=== PATIENT | female | born 2000 | race Caucasian/White ===

== ENCOUNTER 2021-02-18 09:52 | Inpatient (IN) ==
[2021-02-18] MEDS ORDERED: *HR* Nalbuphine 10 MG/ML AMPUL IV PRN (10:03)
[2021-02-18] MEDS ORDERED: Azithromycin 500 MG in 0.9 % Sodium Chloride 250 ML IVPB PRN (10:03)
[2021-02-18] MEDS ORDERED: Metoclopramide 10 MG/2 ML VIAL IVP PRN (10:03)
[2021-02-18] MEDS ORDERED: Famotidine 20 MG/2 ML VIAL IVP PRN (10:03)
[2021-02-18] MEDS ORDERED: Lidocaine 1% 20 ML MDV INFILT PRN (10:03)
[2021-02-18] MEDS ORDERED: Naloxone 0.4 MG/ML INJ IVP PRN (10:03)
[2021-02-18] MEDS ORDERED: EPHEDrine 50 MG/ML VIAL IVP PRN (10:47)
[2021-02-18] MEDS ORDERED: Epidural Premix (fent/bupiv) 110 ML EP SCH (11:00)
[2021-02-18 11:21] LABS: Basophils # 0.1 K/mcL (0.0-0.2); Basophils % 0.4 %; Eosinophils # 0.1 K/mcL (0.0-0.6); Eosinophils % 0.4 %; Hematocrit 29.3 % (35.3-44.9); Immature Granulocytes % 1.6 % (0-4); Lymphocytes # 2.4 K/mcL (0.6-4.6); Lymphocytes % 19.5 %; Mean Corpuscular HGB Conc 30.7 g/dL (31.6-35.5); Mean Corpuscular Hemoglobin 23.6 pg (28.0-33.3); Mean Corpuscular Volume 76.9 fL (83.0-100.0); Mean Platelet Volume 11.6 fL (9.4-12.4); Monocytes # 0.6 K/mcL (0.0-1.3); Monocytes % 4.7 %; Neutrophils # 9.1 K/mcL (1.6-8.9); Platelet Count 284 K/mcL (140-400); Red Blood Count 3.81 M/mcL (3.82-4.97); Red Cell Distribution Width 14.4 % (11.5-14.5); Segmented Neutrophils % 73.4 %; White Blood Count 12.4 K/mcL (4.3-11.1)
[2021-02-18 11:34] LABS: Adenovirus Not Detected (Not Detect); Bordetella Pertussis Not Detected (Not Detect); Chlamydophila pneumoniae Not Detected (Not Detect); Coronavirus 229E Not Detected (Not Detect); Coronavirus HKU1 Not Detected (Not Detect); Coronavirus NL63 Not Detected (Not Detect); Coronavirus OC43 Not Detected (Not Detect); Human Metapneumovirus Not Detected (Not Detect); Human Rhinovirus/Enterovirus Not Detected (Not Detect); Influenza A Subtype 2009 H1 Not Detected (Not Detect); Influenza B Not Detected (Not Detect); Mycoplasma pneumoniae Not Detected (Not Detect); Parainfluenza Virus 1 Not Detected (Not Detect); Parainfluenza Virus 2 Not Detected (Not Detect); Parainfluenza Virus 3 Not Detected (Not Detect); Parainfluenza Virus 4 Not Detected (Not Detect); Respiratory Syncytial Virus Not Detected (Not Detect); SARS-CoV-2 Not Detected (Not Detect)
[2021-02-18] MEDS ORDERED: miSOPROStoL 25 MCG TABLET PO PRN (11:57)
[2021-02-18 12:24] LABS: Amphetamine Screen,Urine Negative ng/mL (Cutoff=1000); Barbiturate Screen,Urine Negative ng/mL (Cutoff=200); Benzodiazepines Screen,Urine Negative ng/mL (Cutoff=200); Cannabinoid Screen,Urine Negative ng/mL (Cutoff = 50); Cocaine Screen,Urine Negative ng/mL (Cutoff= 300); Opiate Screen,Urine Negative ng/mL (Cutoff=300); Phencyclidine Screen,Urine Negative ng/mL (Cutoff=25)
[2021-02-18] MEDS: Ringers Solution, Lactated 1,000 ML IVC SCH ×3 (16:33→23:15)
[2021-02-18] MEDS ORDERED: Oxytocin 20 units/ LR 1000 mL 20 UNIT/1,000 ML BAG IVC SCH (19:45)
[2021-02-18] MEDS ORDERED: Oxytocin 20 units/ LR 1000 mL 20 UNIT/1,000 ML BAG IVC ONE (19:49)
[2021-02-18] MEDS: Ondansetron 4 MG/2 ML VIAL IVP PRN (22:06)
[2021-02-19] MEDS: Ringers Solution, Lactated 1,000 ML IVC SCH (07:18)
[2021-02-19] MEDS: Ondansetron 4 MG/2 ML VIAL IVP PRN (17:27)
[2021-02-20] MEDS ORDERED: Ondansetron ODT 4 MG TAB.RAPDIS SL PRN (03:04)
[2021-02-20] MEDS ORDERED: Oxytocin 20 units/ LR 1000 mL 20 UNIT/1,000 ML BAG IVC SCH (03:04)
[2021-02-20] MEDS ORDERED: Lanolin 7 G OINT...G. TP PRN (03:04)
[2021-02-20] MEDS ORDERED: Benzocaine/Menthol 56 GM AEROSOL SPRAY TP PRN (03:04)
[2021-02-20] MEDS: Ibuprofen 600 MG TABLET PO SCH ×4 (03:51→21:55)
[2021-02-20 05:15] VITALS: O2SAT 98
[2021-02-20] MEDS: Prenatal Vit/FA 1 EACH TABLET PO SCH (10:11)
[2021-02-20] MEDS: Acetaminophen 325 MG TABLET PO SCH ×3 (10:12→21:55)
[2021-02-21 07:14] VITALS: BP 119/74; PULSE 77; TEMP 98.1
[2021-02-21] MEDS: Acetaminophen 325 MG TABLET PO SCH (08:18)
[2021-02-21] MEDS: Ibuprofen 600 MG TABLET PO SCH (08:19)
[2021-02-21] MEDS: Prenatal Vit/FA 1 EACH TABLET PO SCH (08:19)
== END 2021-02-21 12:05 | disposition home or self-care (01) | DRG 560 ==
LOC: 1NENULAB 09:52 → 1NENUOBS 02-20 04:06
PROVIDERS: ADMIT Advanced Practice Midwife; ATTEND Advanced Practice Midwife